=== PATIENT | female | born 1955 | race Caucasian/White ===

== ENCOUNTER 2018-03-13 10:52 | Inpatient (IN) | payer OTHER ==
[~2018-03-13] VITALS: Ht 162.6 cm; Wt 60.8 kg
[2018-03-13 10:57] VITALS: BP 156/78
[2018-03-13] MEDS ORDERED: AMLODIPINE BESY10 MG PO (11:02)
[2018-03-13] MEDS ORDERED: HYDROCHLOROTHIA25 M2 PO (11:02)
[2018-03-13] MEDS ORDERED: LISINOPRIL20 MG PO (11:02)
[2018-03-13 11:12] LABS: ABSOLUTE BASOPHILS 0.1 thou/uL (0.0-0.2); ABSOLUTE EOSINOPHILS 0.2 thou/uL (0.0-0.7); ABSOLUTE LYMPHOCYTES 1.6 thou/uL (0.8-5.3); ABSOLUTE MONOCYTES 0.4 thou/uL (0.0-1.2); ABSOLUTE NEUTROPHILS 7.8 thou/uL (1.6-8.1); BASOPHILS 0.9 %; EOSINOPHILS 1.5 %; HEMATOCRIT 34.8 % (37.0-47.0); HEMOGLOBIN 12.2 gm/dL (12.0-15.0); MCH 30.3 pg (26.0-34.0); MCHC 34.9 g/dL (28.0-37.0); MCV 86.8 fL (80.0-100.0); MONOCYTES 4.2 %; MPV 5.8 fl. (7.2-11.1); NUCLEATED RBCS 0 /100WBC; PLATELET COUNT* 593 thou/uL (150-400); POLYS 77.4 %; RBC 4.01 mil/uL (4.20-5.00); RDW-CV 12.8 % (10.5-14.5); WBC 10.1 thou/uL (4.0-11.0)
[2018-03-13 11:20] LABS: APTT 38.6 Seconds (25.0-31.3); PROTIME 9.5 Seconds (9.20-11.50)
[2018-03-13 11:31] LABS: ALBUMIN 3.3 g/dL (3.4-5.0); ALKALINE PHOSPHATASE 103 U/L (46-116); ANION GAP 7 mmol/L (7-16); CALCIUM 8.9 mg/dL (8.5-10.1); CHLORIDE 79 mmol/L (98-107); CO2 31 mmol/L (21-32); CREATININE 0.6 mg/dL (0.6-1.3); GLUCOSE 109 mg/dL (70-99); NT-PRO BRAIN NAT PEPTIDE 153 pg/mL (<300); POTASSIUM 3.2 mmol/L (3.5-5.1); SGOT 21 U/L (15-37); SGPT 23 U/L (30-65); TOTAL BILIRUBIN 0.5 mg/dL (<0.1-1.0); TOTAL PROTEIN 7.4 g/dL (6.4-8.2); TROPONIN-I LEVEL <0.06 ng/mL (<0.06)
[2018-03-13 11:37] LABS: SODIUM 117 mmol/L (136-145)
[2018-03-13 11:40] LABS: BUN 7 mg/dL (7-18)
[2018-03-13 12:52] LABS: URINE CLARITY CLEAR; URINE COLOR YELLOW; URINE SPECIFIC GRAVITY <= 1.005 (1.005-1.030)
[2018-03-13 12:53] LABS: URINE BILIRUBIN NEGATIVE (Negative); URINE BLOOD NEGATIVE (Negative); URINE GLUCOSE-RANDOM NEGATIVE (Negative); URINE KETONES TRACE (Negative); URINE LEUKOCYTES-REFLEX NEGATIVE (Negative); URINE NITRITE-REFLEX NEGATIVE (Negative); URINE PROTEIN TRACE (Negative)
[2018-03-13 14:18] VITALS: BP 159/75
[2018-03-13 14:27] VITALS: BP 149/77
[2018-03-13 20:05] VITALS: BP 133/72
[2018-03-14] VITALS (7 sets, daily range): BP systolic 102–153; BP diastolic 63–77
[2018-03-14 04:52] LABS: HEMATOCRIT 31.4 % (37.0-47.0); HEMOGLOBIN 10.8 gm/dL (12.0-15.0); MCH 30.5 pg (26.0-34.0); MCHC 34.6 g/dL (28.0-37.0); MCV 88.3 fL (80.0-100.0); MPV 6.1 fl. (7.2-11.1); RBC 3.55 mil/uL (4.20-5.00); RDW-CV 13.3 % (10.5-14.5); WBC 9.4 thou/uL (4.0-11.0)
[2018-03-14 05:19] LABS: CALCIUM 8.2 mg/dL (8.5-10.1); CREATININE 0.5 mg/dL (0.6-1.3); MAGNESIUM 1.6 mg/dL (1.8-2.4)
[2018-03-14 05:20] LABS: POTASSIUM 4.7 mmol/L (3.5-5.1)
[2018-03-14 09:41] LABS: PHOSPHORUS* 2.9 mg/dL (2.5-4.9); URIC ACID* 1.5 mg/dL (2.6-7.2)
--- NOTE | 2018-03-14 12:30 | EKG ---
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 MCGUIRE : 1955 Requested By: Floyd Madera Order Number: [id number] MD: Victoriano Quintana Measurements Intervals [place] Rate: 82 P: 78 AK: 175 QRS: -10 QRSD: 84 T: 66 QT: 346 QTc: 404 Interpretive Statements Sinus rhythm Probable left atrial enlargement Inferior infarct, old No previous ECG available for comparison Electronically Signed On 03-14-2018 12:30:25 CDT by Victoriano Quintana [email or web address] <ELECTRONICALLY SIGNED> By: Victoriano Quintana MD, [facility] 03/14/18 1230 1059 1059 Victoriano Quintana MD, [facility] /EPI
[2018-03-15] VITALS (13 sets, daily range): BP systolic 116–180; BP diastolic 60–79
[2018-03-15 05:02] LABS: ALBUMIN 2.8 g/dL (3.4-5.0); CALCIUM 8.7 mg/dL (8.5-10.1); CREATININE 0.5 mg/dL (0.6-1.3); MAGNESIUM 1.7 mg/dL (1.8-2.4); TOTAL BILIRUBIN 0.5 mg/dL (<0.1-1.0); TOTAL PROTEIN 6.7 g/dL (6.4-8.2)
[2018-03-15 05:04] LABS: ABSOLUTE BASOPHILS 0.1 thou/uL (0.0-0.2); ABSOLUTE EOSINOPHILS 0.2 thou/uL (0.0-0.7); ABSOLUTE LYMPHOCYTES 1.6 thou/uL (0.8-5.3); ABSOLUTE MONOCYTES 0.5 thou/uL (0.0-1.2); ABSOLUTE NEUTROPHILS 5.9 thou/uL (1.6-8.1); EOSINOPHILS 2.4 %; HEMATOCRIT 31.5 % (37.0-47.0); HEMOGLOBIN 11.2 gm/dL (12.0-15.0); MCH 31.2 pg (26.0-34.0); MCHC 35.6 g/dL (28.0-37.0); MCV 87.6 fL (80.0-100.0); MONOCYTES 6.2 %; MPV 5.9 fl. (7.2-11.1); NUCLEATED RBCS 0 /100WBC; PLATELET COUNT* 542 thou/uL (150-400); POLYS 71.4 %; RDW-CV 12.9 % (10.5-14.5); WBC 8.3 thou/uL (4.0-11.0)
[2018-03-15 05:11] LABS: POTASSIUM 3.6 mmol/L (3.5-5.1)
--- NOTE | 2018-03-15 10:23 | CON ---
[address] [address] CONSULTATION Name: ALMA SIGALA Room: [address] IN .R.#: [id number] Admission: 03/13/18 Attend Phys: Leonides Fowler, Discharge: Date of : 55 Report #: [id number] THIS REPORT FOR: //name// CC: Bailey Fowler DATE OF SERVICE: 03/14/2018 REASON FOR CONSULTATION: Lung mass. SUBJECTIVE: A 62-year-old pleasant female who has been admitted because of neck pain, headache and nausea and vomiting for the last 10 days. She was found to be hyponatremic. Her sodium was 117. Upon admission, she was started on IV fluids. Initial CT scan of the abdomen and pelvis showed multiple liver lesions consistent with metastatic disease 12-15 noted in the liver probably measuring up to 2.5 cm. In addition to that, the patient underwent CT chest, which showed right paratracheal lymph nodes measuring 1.7 with a focal nodular mass demonstrated in the medial aspect of the right upper lobe with a right suprahilar region measuring 2.2 cm. In addition to that, there is a ground glass changes. The patient has been started on IV fluids. She started to feel a bit better. She reported headaches. She had a CT done with a noncontrast, which came back negative. CT neck showed spondylosis extending through the mid lower cervical spine with a disk space narrowing and osteophytic formation. REVIEW OF SYSTEMS: All systems were reviewed and it was negative except the above. PAST MEDICAL HISTORY: Hypertension. MEDICATIONS: Per admission list. PAST SURGICAL HISTORY: , sinus surgery and right ankle surgery. ALLERGIES: No known allergies. FAMILY HISTORY: Noncontributory. SOCIAL HISTORY: She drinks wine 1-2 glasses on a daily basis. She is a former smoker. She quit 10 years ago; however, she smoked one pack for 20 years. PHYSICAL EXAMINATION: VITAL SIGNS: Today, temperature 36.7, pulse 77, respirations 17 and blood pressure is 142/71. GENERAL: The patient was sitting in chair, was not in acute distress. LUNGS: Decreased [place] [address] CONSULTATION Name: ALMA SIGALA Victor Manuel Room: [address]#: [id number] Admission: 03/13/18 Attend Phys: Leonides Fowler, Discharge: Date of : 55 Report #: [id number] HEART: Regular rate and rhythm. S1, S2 within normal limits. ABDOMEN: Soft, nontender, nondistended and bowel sounds positive. EXTREMITIES: No edema, no cyanosis and no clubbing. LABORATORY DATA: Today, WBC 9.4, hemoglobin 10.8 and platelets 508. Sodium today is 121 and creatinine 0.5. Magnesium is 1.5. ALT is 23 and AST is 103. IMAGING: As mentioned above. ASSESSMENT AND PLAN: A 62-year-old female who has been ex-smoker who presented with hyponatremia with nausea and vomiting and was found to have liver metastases and lung nodules. RECOMMENDATIONS: 1. I agree with correcting her sodium. It has been trending very slowly. This could be a paraneoplastic syndrome. 2. I will arrange for a CT-guided biopsy first thing in the morning to establish her diagnosis. 3. We will obtain a brain MRI due to symptoms of headache even with negativity of noncontrast CT scan. We will obtain LDH and uric acid. We will follow the patient closely. <ELECTRONICALLY SIGNED> By: Jaiden Penaloza MD 03/15/18 1023 0838 [id number] Penaloza MD /nt
--- NOTE | 2018-03-15 12:53 | CON ---
[address] [address] CONSULTATION Name: ZAKIYAALMA Victor Manuel Room: [address] IN .R.#: [id number] Admission: 03/13/18 Attend Phys: Leonides Fowler, Discharge: Date of : 55 Report #: [id number] THIS REPORT FOR: //name// CC: Bailey Fowler DATE OF SERVICE: 03/14/2018 CONSULT REQUESTED BY: Dr. Fowler. INDICATION FOR CONSULTATION: Lung mass. HISTORY OF PRESENT ILLNESS: This is a 62-year-old female with past medical history as mentioned below. This does include an extensive history of smoking in the past. The patient, however, has not been diagnosed with cardiac or respiratory disease in the past. She says that for the last several months, she has had pain in her right knee. She attributes this to a meniscal tear. The patient says that otherwise she has been doing well until around 10 or 15 days ago when she started having nausea, has been vomiting about once a day, has had loss of appetite, has had headaches as well as neck pain. There is no significant increase in shortness of breath. She has had only occasional coughing. There is no sputum production. There is no pain towards the front of her chest. She has had some postnasal drip, otherwise had no other upper respiratory complaints. There is no fever. Answers are negative for 12 questions for review of systems except as mentioned above. Upon arrival, workup has shown lung mass as well as ground-glass opacities in her lungs. The patient also has liver masses and some mild mediastinal lymphadenopathy. PAST MEDICAL HISTORY: Hypertension, , ankle fracture. Note, the patient is on hydrochlorothiazide, amongst other medications for blood pressure at home. There is no known history of cardiac or respiratory disease in the past. There is no known history of fungal disease. There is no known history of previous granulomatous lung disease. There is no known history of exposure to fungal infections. SOCIAL HISTORY: Extensive history of smoking more than a pack a day for several decades, discontinued several years ago, not known to me exactly when she discontinued; one to 2 glasses of wine a day. No known history of illegal drug use. ALLERGIES: No known drug allergies. CURRENT MEDICATIONS: List in [employer] [place] [address] CONSULTATION Name: ALMA SIGALA Room: [address] IN [facility]#: [id number] Admission: 03/13/18 Attend Phys: Leonides Fowler, Discharge: Date of : 55 Report #: [id number] HOME MEDICATIONS: List also in [employer] reviewed. Note that amongst other medications, the patient was on hydrochlorothiazide at home. FAMILY HISTORY: There is no known family history of fungal or granulomatous disease. PHYSICAL EXAMINATION: GENERAL: She is alert, awake and oriented, does not appear to be in any distress at this time. VITAL SIGNS: Has a pulse of 71 and a blood pressure of 152/77. She is afebrile with a temperature of 36.8. She is not on supplemental oxygen. She is saturating 96-98%. HEENT: Head is normocephalic and atraumatic. Pupils are equal and reactive. There is no throat erythema. NECK: Does not show raised JVP, asymmetry, mass or lymph nodes. CHEST: Symmetrical expansion on inspection and palpation. On auscultation, chest is clear. HEART: Regular. There is no murmur. ABDOMEN: Soft and nontender. EXTREMITIES: Lower extremities show no edema, no calf tenderness. SKIN: Dry and intact. NEUROLOGICAL: She did move all extremities bilaterally equally and spontaneously. There is no focal deficit identified. LABORATORY DATA: The patient's CT chest is reviewed. It does show bilateral ground-glass opacities consistent with atypical infiltrates. There is also a centrally located noncalcified lung mass and a peripherally located calcified lung mass. There are liver lesions noted on the CT of the abdomen and pelvis as well as chest as well. There are no additional findings on the patient's CT head and neck as far as evidence of metastatic disease or lymphadenopathy is concerned. The patient's lab work including CBC as well as chemistries, coagulation studies are in [facility]. Urinalysis also in [facility] and this is all reviewed. ASSESSMENT AND PLAN: 1. Bilateral ground-glass pulmonary infiltrates with calcified as well as noncalcified lung mass and liver masses. The patient does have bilateral ground-glass infiltrates. At first glance, these appear to be more consistent with an atypical infection than a malignancy. A fungal infection will also be possible. It is noted also that the patient has a centrally located noncalcified lung mass. The location of this mass is such that biopsy of this mass if needed will be a challenge. I do not feel that it could be biopsied by a bronchoscopy and CT-guided lung biopsy will be high risk, potentially it could be approached down the line if needed with a navigational bronchoscopy. A regular bronchoscopy for cultures in the interim will be possible. [address] [address] CONSULTATION Name: ALMA SIGALA Room: [address] IN [facility].#: [id number] Admission: 03/13/18 Attend Phys: Leonides KaitlinBrooklyn Janeth, Discharge: Date of : 55 Report #: [id number] While it will be entirely possible that the patient's lung mass as well as liver lesions and mediastinal lymphadenopathy are secondary to a metastatic disease, the possibility of granulomatous disease including sarcoid as well as a fungal infection, which could also be old also need to be considered and are possibilities. It is possible that the lung infiltrates are a separate process. At this time, I would go ahead and treat her with levofloxacin, which will cover for atypical infections. I will go ahead and do cultures as well as serologies including fungal and atypical infection serologies at this time. We will also do connective tissue markers. Meanwhile, the Oncology Service has planned for a biopsy of the liver lesions and I feel that this is also reasonable and I agree with the same as well. 2. Mild mediastinal lymphadenopathy. See discussion above. 3. Hyponatremia. The patient appears to be well hydrated at this time. I would primarily treat with fluid restriction. I went ahead and ordered the same. The patient also was on hydrochlorothiazide at home, which may have contributed. I recommend not restarting thiazide diuretics. Suggest using other medications for control of blood pressure. 4. Right leg pain, likely secondary to previous knee injury; however, I would like to do venous Dopplers as well. 5. A former smoker. Thanks for this consultation. <ELECTRONICALLY SIGNED> By: Javier Castañeda MD 03/15/18 1253 1149 0101AMD gilbert Titus
[2018-03-15 13:08] LABS: ANTI-DNA SCREEN 8 IU/mL (0-9); ANTI-RNP <0.2 AI (0.0-0.9)
[2018-03-15 16:20] LABS: CALCIUM 8.5 mg/dL (8.5-10.1); CREATININE 0.5 mg/dL (0.6-1.3)
[2018-03-15 20:25] LABS: CALCIUM 8.2 mg/dL (8.5-10.1); CREATININE 0.5 mg/dL (0.6-1.3); POTASSIUM 4.3 mmol/L (3.5-5.1)
[2018-03-16] VITALS: BP 157/62
[2018-03-16 04:00] VITALS: BP 134/71
[2018-03-16 06:13] LABS: ALBUMIN 3.1 g/dL (3.4-5.0); CALCIUM 8.9 mg/dL (8.5-10.1); CREATININE 0.5 mg/dL (0.6-1.3); MAGNESIUM 1.8 mg/dL (1.8-2.4); POTASSIUM 4.3 mmol/L (3.5-5.1); TOTAL BILIRUBIN 0.4 mg/dL (<0.1-1.0); TOTAL PROTEIN 7.4 g/dL (6.4-8.2)
[2018-03-16 07:49] VITALS: BP 153/67
[2018-03-16 09:09] LABS: HEPATITIS B SURFACE AG Negative (Negative)
--- NOTE | 2018-03-16 11:05 | CON ---
[address] [address] CONSULTATION Name: ZAKIYAALMA D Room: [address] IN M.R.#: [id number] Admission: 03/13/18 Attend Phys: Leonides Fowler, Discharge: Date of : 55 Report #: [id number] THIS REPORT FOR: //name// CC: Bailey Dixon Fowler DATE OF SERVICE: 03/15/2018 REQUESTING PHYSICIAN: Leonides Fowler MD REASON FOR CONSULTATION: Hyponatremia. HISTORY OF PRESENT ILLNESS: The patient is a very pleasant 62-year-old female with medical history significant for hypertension, presents to the hospital from the primary care physician who sent her here because of low sodium level. The patient has not been feeling well for the last 10 days. She was very tired, developed some neck pain. She lost 10 pounds over the last week. The blood work was done by primary care doctor and was found that her serum sodium was 117 and she was admitted to the hospital on 03/13. Her serum sodium went up to 121 after he gave her saline, but then dropped to 118 today, and I was consulted. Workup in the hospital revealed presence of multiple liver lesions consistent with metastatic disease. Also had a few small periportal lymph nodes in the abdomen. Her chest CT revealed right paratracheal lymph node measuring 1.7 cm, a focal nodule mass was found in the medial aspect of the right upper lobe and it was concerning for malignancy and some calcified granulomas in the left lung base. MEDICATIONS: Prior to admission include hydrochlorothiazide, lisinopril, amlodipine. SOCIAL HISTORY: She used to smoke, but quit smoking 10 years ago. FAMILY HISTORY: Negative for cancer. REVIEW OF SYSTEMS: Positive for weight loss, weakness, neck pain. PHYSICAL EXAMINATION: GENERAL: Awake, alert, oriented. VITAL SIGNS: Blood pressure 163/79, heart rate 68, afebrile. HEENT: Pupils are round. NECK: Supple. LUNGS: Clear. CARDIOVASCULAR: Regular rate. ABDOMEN: Soft. LOWER EXTREMITIES: [place] [address] CONSULTATION Name: ALMA SIGALA Room: [address] IN [facility]#: [id number] Admission: 03/13/18 Attend Phys: Leonides Fowler, Discharge: Date of : 55 Report #: [id number] ASSESSMENT: 1. Hyponatremia, most likely it is SIADH, likely due to malignancy. 2. Lung lesions and liver lesions. Workup is in progress, but again most likely that is malignancy. PLAN: 1. We will restrict her fluids to 1200 mL a day. 2. We will give her 300 mL of 3% saline slowly. 3. Await result of the biopsy of her liver lesion. I discussed this case with Dr. Castañeda. Thank you very much for asking my opinion on hyponatremia on the patient. <ELECTRONICALLY SIGNED> By: Hossein Doss MD 03/16/18 1105 1220 [id number] Doss MD /[facility]
[2018-03-16 12:00] VITALS: BP 147/83
[2018-03-16 15:40] VITALS: BP 183/83
[2018-03-16 18:12] LABS: CALCIUM 8.2 mg/dL (8.5-10.1); CREATININE 0.6 mg/dL (0.6-1.3); POTASSIUM 3.9 mmol/L (3.5-5.1)
[2018-03-16 19:45] VITALS: BP 117/57
[2018-03-16 23:08] LABS: MYCOPLASMA PNEUMONIA IgG 657 U/mL (0-99); MYCOPLASMA PNEUMONIA IgM <770 U/mL (0-769)
[2018-03-17] VITALS: BP 135/60
[2018-03-17 03:54] VITALS: BP 134/78
[2018-03-17 04:48] LABS: CREATININE 0.5 mg/dL (0.6-1.3); POTASSIUM 3.9 mmol/L (3.5-5.1)
[2018-03-17 08:00] VITALS: BP 165/72
[2018-03-17 11:10] VITALS: BP 154/77
[2018-03-17 15:37] VITALS: BP 142/74
[2018-03-17 19:40] VITALS: BP 168/86
[2018-03-18] VITALS (8 sets, daily range): BP systolic 111–160; BP diastolic 67–89
[2018-03-18] MEDS ORDERED: PROBIOTIC ACID1 EAC3 PO (11:12)
[2018-03-18] MEDS ORDERED: LEVAQUIN 500 M500 M2 PO (11:13)
--- NOTE | 2018-03-18 16:11 | PATH ---
[address] [address] PATHOLOGY RPT PROCEDURE Name: ZAKIYAJUSTYNA Room: [address] IN .R.#: [id number] Admission: 03/13/18 Date of : 55 Discharge: 03/18/18 Report #: [id number] Path Case #: [id number] [facility] Accession Number: [id number] . 01 Material submitted: . LIVER BIOPSY . 01 Clinical history: . 1.5 x 1.1 x 1.5 cm mass . 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 (SEE COMMENT). QTP/03/18/2018 . 02 Comment: Multiple tissue cores show liver parenchyma involved by nests and sheets of malignant, small cells, typical of bronchogenic small cell carcinoma, supported by properly-controlled immunohistochemical stains showing results as follows: . TTF1: Strong positive Keratin AE1/AE3: Strong perinuclear dot-like positive CD5/6: Strong positive . Preliminary findings relayed to Dr. Penaloza at approximately 11:07 on 03/16/2018 and final results to Dr. Penaloza at approximately 09:40 on 03/17/2018. . Reviewed with Dr. Mesha Malone who agrees with the diagnosis. (ANNIE:pit 03/17/2018) . 02 Electronically signed: . Jesse Guidry MD, Pathologist NPI- [id number] . 01 Gross description: . Received in formalin labeled "Justyna Sigala, liver BX," are 6 distinct needle cores of adames soft tissue ranging from 0.1 to 1.2 cm in length and measuring less than 0.1 cm in diameter. The specimen is submitted entirely in cassette A1. (TSD; 03/15/2018) TOB/TOB . 02 Pathologist provided ICD-10: C78.7 [place] [address] PATHOLOGY RPT PROCEDURE Name: JUSTYNA SIGALA Room: [address] IN [facility]#: [id number] Admission: 03/13/18 Date of : 55 Discharge: 03/18/18 Report #: [id number] Path Case #: [id number] . 02 CPT . 730067, [id number], [id number] Performed at: [address], [place], [place] [id number] MD Jose Hoover MD Phone: [phone] Performed at: 02 [facility] [address] [place], [place] [id number] MD Jesse Guidry MD Phone: [phone]
[2018-03-18 23:08] LABS: ADENOVIRUS Negative (Negative); INFLUENZA A Negative (Negative); INFLUENZA B Negative (Negative); METAPNEUMOVIRUS Negative (Negative); PARAINFLUENZA 1 Negative (Negative); PARAINFLUENZA 2 Negative (Negative); PARAINFLUENZA 3 Negative (Negative); RHINOVIRUS Negative (Negative); RSV A Negative (Negative); RSV B Negative (Negative)
== END 2018-03-18 12:30 | disposition home or self-care (01) | DRG 643 ==
LOC: M.ERS 10:52 → M.2W 13:42 → M.TBA-ER 13:42 → M.2W 14:33
PROVIDERS: Family Medicine; Internal Medicine; Internal Medicine Critical Care Medicine; Internal Medicine Nephrology; ADMIT Family Medicine
PROC: B548ZZA Ultrasonography of Superior Vena Cava, Guidance (ICD-10-PCS; principal; 2018-03-15)
PROC: 0FB13ZX Excision of Right Lobe Liver, Percutaneous Approach, Diagnostic (ICD-10-PCS; principal; 2018-03-15)
PROC: B5181ZA Fluoroscopy of Superior Vena Cava using Low Osmolar Contrast, Guidance (ICD-10-PCS; principal; 2018-03-15)
PROC: 02HV33Z Insertion of Infusion Device into Superior Vena Cava, Percutaneous Approach (ICD-10-PCS; principal; 2018-03-15)
DX: E22.2 Syndrome of inappropriate secretion of antidiuretic hormone (principal); J18.9 Pneumonia, unspecified organism; I10 Essential (primary) hypertension; R91.8 Other nonspecific abnormal finding of lung field; R91.1 Solitary pulmonary nodule; R59.1 Generalized enlarged lymph nodes; K76.9 Liver disease, unspecified; E87.6 Hypokalemia; Z87.81 Personal history of (healed) traumatic fracture; Z87.891 Personal history of nicotine dependence; Z79.899 Other long term (current) drug therapy

== ENCOUNTER → 2018-06-09 | Outpatient (CLI) | payer OTHER ==
[~2018-06-09] MED LIST: AMLODIPINE BESY10 MG PO; HYDROCHLOROTHIA25 M2 PO; LEVAQUIN 500 M500 M2 PO; LISINOPRIL20 MG PO; PROBIOTIC ACID1 EAC3 PO
== END ==
LOC: M.MRI 06-02 10:55
DX: C34.81 Malignant neoplasm of overlapping sites of right bronchus and lung (principal); I25.10 Atherosclerotic heart disease of native coronary artery without angina pectoris

== ENCOUNTER → 2018-09-15 | Outpatient (CLI) | payer OTHER | LOC: M.MRI 07:34 | DX: C34.81 Malignant neoplasm of overlapping sites of right bronchus and lung (principal); R90.82 White matter disease, unspecified; J32.9 Chronic sinusitis, unspecified ==

== ENCOUNTER 2018-11-09 12:09 | Inpatient (IN) | payer OTHER ==
[~2018-11-09] VITALS: Ht 162.6 cm; Wt 55.3 kg
[2018-11-09 12:12] VITALS: BP 166/78
[2018-11-09 12:48] LABS: ABSOLUTE BASOPHILS 0.1 thou/uL (0.0-0.2); ABSOLUTE EOSINOPHILS 0.2 thou/uL (0.0-0.7); ABSOLUTE MONOCYTES 0.7 thou/uL (0.0-1.2); ABSOLUTE NEUTROPHILS 4.3 thou/uL (1.6-8.1); BASOPHILS 1.1 %; EOSINOPHILS 3.5 %; HEMATOCRIT 39.4 % (37.0-47.0); LYMPHOCYTES 16.6 %; MCH 30.9 pg (26.0-34.0); MCHC 35.6 g/dL (28.0-37.0); MCV 86.8 fL (80.0-100.0); MONOCYTES 10.6 %; MPV 6.7 fl. (7.2-11.1); NUCLEATED RBCS 0 /100WBC; PLATELET COUNT* 315 thou/uL (150-400); POLYS 68.2 %; RBC 4.53 mil/uL (4.20-5.00); RDW-CV 14.5 % (10.5-14.5); WBC 6.3 thou/uL (4.0-11.0)
[2018-11-09 13:14] LABS: ALBUMIN 3.4 g/dL (3.4-5.0); ALKALINE PHOSPHATASE 377 U/L (46-116); ANION GAP 10 mmol/L (7-16); BUN 12 mg/dL (7-18); CALCIUM 9.4 mg/dL (8.5-10.1); CHLORIDE 90 mmol/L (98-107); CO2 27 mmol/L (21-32); CREATININE 0.6 mg/dL (0.6-1.3); GLUCOSE 121 mg/dL (70-99); POTASSIUM 3.2 mmol/L (3.5-5.1); SGOT 124 U/L (15-37); SGPT 111 U/L (30-65); SODIUM 127 mmol/L (136-145); TOTAL BILIRUBIN 0.6 mg/dL (<0.1-1.0); TOTAL PROTEIN 7.4 g/dL (6.4-8.2); TROPONIN-I LEVEL <0.06 ng/mL (<0.06)
[2018-11-09 14:07] LABS: INFLUENZA A ANTIGEN None Detected (None Detect); INFLUENZA B ANTIGEN None Detected (None Detect)
[2018-11-09 15:18] LABS: URINE BLOOD NEGATIVE (Negative); URINE CLARITY CLEAR; URINE COLOR YELLOW; URINE GLUCOSE-RANDOM NEGATIVE (Negative); URINE KETONES TRACE (Negative); URINE LEUKOCYTES-REFLEX TRACE (Negative); URINE NITRITE-REFLEX NEGATIVE (Negative); URINE PROTEIN TRACE (Negative); URINE SPECIFIC GRAVITY >= 1.030 (1.005-1.030)
[2018-11-09 15:29] LABS: ICTOTEST (BILI CONFIRMATORY) Negative (Negative); URINE BILIRUBIN 1+ (Negative)
[2018-11-09 15:31] LABS: BACTERIA-REFLEX 1-9 Few /HPF (None Seen); CASTS None Seen /LPF (None Seen); SQUAMOUS 0-3 Few /LPF (0-3); URINE RBC 0-2 Rare /HPF (0-2); URINE WBC-REFLEX 0-5 Rare /HPF (0-5)
[2018-11-09 19:48] VITALS: BP 138/66
[2018-11-09 20:00] VITALS: BP 160/75
[2018-11-10] VITALS: BP 167/81
[2018-11-10] MEDS ORDERED: MIRALAX17 G1 PO (03:08)
[2018-11-10] MEDS ORDERED: TYLENOL PM EX-1 EACH PO ×2 (03:10→03:12)
[2018-11-10 04:00] VITALS: BP 165/80
--- NOTE | 2018-11-10 04:22 | NUR ---
RECEIVED PT FROM ER AT APPROX 1950 ACCOMPANIED BY RN. PT IS AWAKE AND ORIENTED X4. GERIATRIC ASSISTANT TRACING SR. VSS. O2 SAT IS 95% ON 2L/NC. ADMISSION ASSESSMENT DONE AND CHARTED. WITH C/O RUQ ABDOMINAL PAIN, PT SAYS PAIN IS EXACERBATED BY DEEP BREATHING. PAIN PARTIALLY RELEIVED BY FENTANYL GIVEN PER MAR. PT DENIES NAUSEA. ADVISED ON THE USE OF CALL LIGHT AND ORIENTED ON ROOM SET-UP. HOURLY ROUNDING DONE FOR PT SAFETY.
[2018-11-10 07:24] LABS: CALCIUM 7.5 mg/dL (8.5-10.1); CREATININE 0.4 mg/dL (0.6-1.3); POTASSIUM 3.8 mmol/L (3.5-5.1)
[2018-11-10 07:30] VITALS: BP 161/86
--- NOTE | 2018-11-10 09:44 | NUR ---
Pt is A&O. Resides at home alone. Active and independent. No DME. No hx of HH or SNF. Goal is home at nh, Pt is hopeful to dc today. Dtr in room and can transport. Following.
[2018-11-10 13:48] VITALS: BP 176/76
--- NOTE | 2018-11-10 13:51 | 2DMMODE ---
[place] [address] 2 D/M-MODE ECHOCARDIOGRAM Name: ALMA SIGALA Room: [address] IN [facility]#: [id number] Admission: 11/09/18 Attend Phys: Cristian Lentz Discharge: Date of : 55 Date of Service: 11/10/18 1351 Report #: [id number] THIS REPORT FOR: //name// APPROVED REPORT Study performed: 11/10/2018 11:18:04 EXAM: Comprehensive 2D, Doppler, and color-flow Echocardiogram Patient Location: In-Patient Room #: [facility] Status: routine BSA: 1.59 HR: 75 bpm BP: 161/86 mmHg Rhythm: NSR Other Information Study Quality: Good Indications Dyspnea Tachycardia 2D Dimensions IVSd: 10.74 (7-11mm) LVOT Diam: 19.16 (18-24mm) LVDd: 36.35 mm PWd: 7.72 (7-11mm) Ascending Ao: 28.40 (22-36mm) LVDs: 21.83 (25-40mm) Aortic Root: 29.76 mm Volumes Left Atrial Volume (Systole) LA ESV Index: 31.00 mL/m2 Aortic Valve AoV Peak Alex.: 1.52 m/s AO Peak Gr.: 9.19 mmHg LVOT Max P.87 mmHg AO Mean Gr.: 5.08 mmHg LVOT Mean P.62 mmHg LVOT Max V: 1.40 m/s AO V2 VTI: 33.17 cm LVOT Mean V: 0.87 m/s JORDAN (VTI): 2.61 cm2 LVOT V1 VTI: 30.01 cm Mitral Valve E/A Ratio: 0.81 MV Decel. Time: 223.77 [place] [address] 2 D/M-MODE ECHOCARDIOGRAM Name: ALMA SIGALA Room: [address]#: [id number] Admission: 11/09/18 Attend Phys: Cristian Lentz Discharge: Date of : 55 Date of Service: 11/10/18 1351 Report #: [id number] MV E Max Alex.: 0.80 m/s MV PHT: 64.89 ms MVA (PHT): 3.39 cm2 TDI E/Lateral E': 7.27 E/Medial E': 6.67 Medial E' Alex.: 0.12 m/s Lateral E' Alex.: 0.11 m/s Pulmonary Valve PV Peak Alex.: 0.86 m/s PV Peak Gr.: 2.93 mmHg Left Ventricle The left ventricle is normal size. There is normal LV segmental wall motion. There is normal left ventricular wall thickness. Left ventricular systolic function is normal. The left ventricular ejection fraction is within the normal range. LVEF is 60-65%. Grade I - abnormal relaxation pattern. Right Ventricle The right ventricle is normal size. The right ventricular systolic function is normal. Atria The left atrium size is normal. The right atrium size is normal. Aortic Valve Mild aortic valve sclerosis. No aortic regurgitation is present. There is no aortic valvular stenosis. Mitral Valve The mitral valve is normal in structure. Trace mitral regurgitation. No evidence of mitral valve stenosis. Tricuspid Valve The tricuspid valve is normal in structure. Unable to assess PA pressure. Trace tricuspid regurgitation. Pulmonic Valve The pulmonary valve is normal in structure. There is no pulmonic valvular regurgitation. Great Vessels The aortic root is normal in size. IVC is normal in size and collapses >50% [place] [address] 2 D/M-MODE ECHOCARDIOGRAM Name: ALMA SIGALA Room: [address]#: [id number] Admission: 11/09/18 Attend Phys: Cristian Lentz Discharge: Date of : 55 Date of Service: 11/10/18 1351 Report #: [id number] Pericardium There is no pericardial effusion. <Conclusion> The left ventricle is normal size. There is normal left ventricular wall thickness. Left ventricular systolic function is normal. The left ventricular ejection fraction is within the normal range. LVEF is 60-65%. Grade I - abnormal relaxation pattern. The right ventricle is normal size. The left atrium size is normal. Mild aortic valve sclerosis. No aortic regurgitation is present. There is no aortic valvular stenosis. The mitral valve is normal in structure. Trace mitral regurgitation. The tricuspid valve is normal in structure. IVC is normal in size and collapses >50% with inspiration. There is no pericardial effusion. There is normal LV segmental wall motion. <ELECTRONICALLY SIGNED> By: Gerard Lopez MD, FACC 11/10/18 1351 1351 1351 Gerard Lopez MD, FACC /INF
--- NOTE | 2018-11-10 14:31 | EKG ---
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
[2018-11-10] MEDS ORDERED: OXYCODONE HCL 55 MG PO (15:33)
[2018-11-10 15:36] VITALS: BP 176/76
== END 2018-11-10 16:30 | disposition home or self-care (01) | DRG 181 ==
LOC: M.ERS 12:09 → M.2W 16:14 → M.TBA-ER 16:14 → M.2W 20:37
PROVIDERS: Physician Assistant; ADMIT Internal Medicine
DX: C34.90 Malignant neoplasm of unspecified part of unspecified bronchus or lung (principal); C78.7 Secondary malignant neoplasm of liver and intrahepatic bile duct; E87.1 Hypo-osmolality and hyponatremia; R06.03 Acute respiratory distress; E87.6 Hypokalemia; R00.0 Tachycardia, unspecified; I10 Essential (primary) hypertension; Z98.891 History of uterine scar from previous surgery; Z85.118 Personal history of other malignant neoplasm of bronchus and lung; Z87.891 Personal history of nicotine dependence

== ENCOUNTER → 2018-12-24 | Outpatient (CLI) | payer OTHER ==
[~2018-12-24] MED LIST changes: +MIRALAX17 G1 PO; +OXYCODONE HCL 55 MG PO; +TYLENOL PM EX-1 EACH PO
== END ==
LOC: M.MRI 10:51
DX: C34.81 Malignant neoplasm of overlapping sites of right bronchus and lung (principal)

== ENCOUNTER → 2019-02-02 | Outpatient (CLI) | payer OTHER | LOC: M.CT 09:33 | DX: C34.81 Malignant neoplasm of overlapping sites of right bronchus and lung (principal); I70.0 Atherosclerosis of aorta; J84.10 Pulmonary fibrosis, unspecified; K57.30 Diverticulosis of large intestine without perforation or abscess without bleeding; R59.9 Enlarged lymph nodes, unspecified; N83.202 Unspecified ovarian cyst, left side ==

== ENCOUNTER → 2019-04-22 | Outpatient (CLI) | payer OTHER ==
[~2019-04-22] MED LIST changes: +FLAGYL500 M1 PO; +FOLIC ACID1 MG PO; +LEVAQUIN 500 M500 M3 PO; +TRAMADOL 50 MG50 MG PO
== END ==
LOC: M.CT 09:54
DX: C34.81 Malignant neoplasm of overlapping sites of right bronchus and lung (principal); C78.7 Secondary malignant neoplasm of liver and intrahepatic bile duct; J84.10 Pulmonary fibrosis, unspecified; J43.9 Emphysema, unspecified; K76.89 Other specified diseases of liver; R16.0 Hepatomegaly, not elsewhere classified; N83.202 Unspecified ovarian cyst, left side

== ENCOUNTER 2019-05-11 16:06 | Inpatient (IN) | payer OTHER ==
[~2019-05-11] VITALS: Ht 162.6 cm; Wt 4.1 kg
[~2019-05-11 16:06] MED LIST changes: -FLAGYL500 M1 PO; -FOLIC ACID1 MG PO; -LEVAQUIN 500 M500 M3 PO; -TRAMADOL 50 MG50 MG PO
[2019-05-11 16:15] VITALS: BP 168/92
[2019-05-11] MEDS ORDERED: TRAMADOL 50 MG50 MG PO (16:20)
[2019-05-11 16:32] LABS: ABSOLUTE BASOPHILS 0.1 thou/uL (0.0-0.2); ABSOLUTE NEUTROPHILS 6.9 thou/uL (1.6-8.1); BASOPHILS 0.6 %; EOSINOPHILS 0.1 %; HEMATOCRIT 26.6 % (37.0-47.0); HEMOGLOBIN 9.2 gm/dL (12.0-15.0); LYMPHOCYTES 11.4 %; MCH 34.7 pg (26.0-34.0); MCHC 34.6 g/dL (28.0-37.0); MCV 100.3 fL (80.0-100.0); MONOCYTES 11.3 %; MPV 8.1 fl. (7.2-11.1); NUCLEATED RBCS 0 /100WBC; PLATELET COUNT* 229 thou/uL (150-400); POLYS 76.6 %; RBC 2.66 mil/uL (4.20-5.00); RDW-CV 21.5 % (10.5-14.5)
[2019-05-11 16:40] LABS: CALCIUM 9.9 mg/dL (8.5-10.1); CREATININE 0.6 mg/dL (0.6-1.3)
[2019-05-11 16:41] LABS: APTT 25.7 Seconds (25.0-31.3)
[2019-05-11 16:53] LABS: ALBUMIN 3.7 g/dL (3.4-5.0); MAGNESIUM 1.8 mg/dL (1.8-2.4); TOTAL BILIRUBIN 0.9 mg/dL (<0.1-1.0); TOTAL PROTEIN 7.4 g/dL (6.4-8.2)
[2019-05-11 16:55] LABS: POTASSIUM 2.4 mmol/L (3.5-5.1)
[2019-05-11 16:58] LABS: PLATELET ESTIMATE ADEQUATE
[2019-05-11 16:59] LABS: HYPOCHROMASIA 1+; MICROCYTES 1+
[2019-05-11 17:00] LABS: POLYCHROMASIA Occasional
[2019-05-11 21:12] VITALS: BP 164/80
[2019-05-12] VITALS: BP 142/73
[2019-05-12 03:45] VITALS: BP 150/74
[2019-05-12 06:53] LABS: HEMATOCRIT 23.6 % (37.0-47.0); HEMOGLOBIN 8.1 gm/dL (12.0-15.0); MCH 34.7 pg (26.0-34.0); MCHC 34.5 g/dL (28.0-37.0); MCV 100.6 fL (80.0-100.0); MPV 8.1 fl. (7.2-11.1); RBC 2.34 mil/uL (4.20-5.00); RDW-CV 21.9 % (10.5-14.5); WBC 8.1 thou/uL (4.0-11.0)
[2019-05-12 07:05] LABS: ALBUMIN 3.3 g/dL (3.4-5.0); CREATININE 0.5 mg/dL (0.6-1.3); MAGNESIUM 1.6 mg/dL (1.8-2.4); TOTAL BILIRUBIN 0.8 mg/dL (<0.1-1.0); TOTAL PROTEIN 6.9 g/dL (6.4-8.2)
[2019-05-12 07:08] LABS: POTASSIUM 2.9 mmol/L (3.5-5.1)
[2019-05-12 08:00] VITALS: BP 160/84
--- NOTE | 2019-05-12 10:02 | EKG ---
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1955 Requested By: Floyd Madera Order Number: [id number] MD: Nelson Nam Measurements Intervals [place] Rate: 97 P: 81 CO: 144 QRS: 20 QRSD: 85 T: 57 QT: 381 QTc: 484 Interpretive Statements Sinus rhythm Probable left atrial enlargement Left ventricular hypertrophy Probable inferior infarct, old Baseline wander in lead(s) I,III,aVL Compared to ECG 11/09/2018 13:07:47 no complaints Electronically Signed On 05-12-2019 10:02:16 CDT by Nelson Nam [email or web address] <ELECTRONICALLY SIGNED> By: Nelson Nam MD, FACC 05/12/19 1002 1623 1623 Nelson Nam MD, [facility] /EPI
--- NOTE | 2019-05-12 10:39 | NUR ---
Pt is A&O. Resides at home alone. Independent. Pt is undergoing chemotherapy. Pt has a cane that she uses when out in the community. Pt current with [facility], nurse comes weekly and SW comes every 3 weeks. Supportive family and friends that assist as needed. No o2. No hx of HH or SNF. Goal is home at dc, following for dc needs.
--- NOTE | 2019-05-12 17:00 | NUR ---
VSS, SA ON TELE, PT UP AD DENIS, A&OX4, PT HAS ELECTROLYTE IMBALANCE, REPLACEMENT PROTOCOL ACTIVE, HOURLY ROUNDING PERFORMED, POSSESSIONS AND CALL LIGHT WITHIN REACH. PT RESTING COMFORTABLY IN ROOM
[2019-05-12 17:33] LABS: CALCIUM 9.3 mg/dL (8.5-10.1); CREATININE 0.5 mg/dL (0.6-1.3)
[2019-05-12 20:00] VITALS: BP 138/87
[2019-05-13] VITALS (7 sets, daily range): BP systolic 137–158; BP diastolic 64–86
--- NOTE | 2019-05-13 05:10 | NUR ---
ASSUMED PATIENT CARE AT 1900. ASSESSMENT COMPLETED CHARTED. VSS. SR/PACS ON MONITOR. PATIENT HAS A PORT IN THE RIGHT CHEST. DRESSING IS CDI. HOURLY ROUNDING IN PLACE FOR PATIENT SAFETY. CLWR.
[2019-05-13 05:45] LABS: MAGNESIUM 2.1 mg/dL (1.8-2.4); POTASSIUM 3.6 mmol/L (3.5-5.1)
--- NOTE | 2019-05-13 14:04 | NUR ---
PT HOPEFUL TO GO HOME, AWAITING FINAL DR CLEARANCE. WANTS TO CONTIN[facility] WITH [facility].
--- NOTE | 2019-05-13 18:04 | CON ---
[address] [address] CONSULTATION Name: ALMA SIGALA Room: [address] IN ..#: [id number] Admission: 05/11/19 Attend Phys: Thea Elaine MD Discharge: Date of : 55 Report #: [id number] THIS REPORT FOR: //name// CC: Thea Metcalf DATE OF SERVICE: 05/12/2019 DIAGNOSIS: Metastatic small cell, high-grade neuroendocrine tumor. HISTORY OF PRESENT ILLNESS: The patient is a 63-year-old female who has been treated with multiple lines of therapy including carboplatin, etoposide plus Tecentriq. The patient had progressive disease after that, treated with immunotherapy with ipilimumab and Opdivo which she progressed, and most recently, she received 6 cycles of topotecan. Most recent CT scan around 2 weeks ago showed stable disease/partial response; however, the patient requested to have a break from treatment. Previously, she had been having severe abdominal distention and her palliative nurse called the clinic due to shortness of breath. The patient was directed to the Emergency Room. The patient has been complaining of severe constipation, abdominal pain and shortness of breath. She has been previously diagnosed with SIADH and has been on water restriction. Upon admission, she had severe electrolyte abnormalities including severe hypokalemia at 2.4 and lactic acid 3.6 with marginally elevated LFTs. The patient has been on electrolytes replacement. I saw the patient today, this afternoon, she is feeling a little bit better; however, she continues to have the fatigue. Ultrasound and CT scan of the abdomen showed enlarged liver with thickening gallbladder wall. She had abnormal bowel wall thickening involving the small bowel and the colon concerning of enterocolitis. The patient was started on intravenous antibiotics empirically. REVIEW OF SYSTEMS: All systems reviewed. It was negative except the above. PAST MEDICAL HISTORY: Metastatic small cell lung cancer status post three lines of therapy. Most recent CT scan showed disease status as stable/partial response. Currently, the patient requested to be off treatment. Hypertension. PAST SURGICAL HISTORY: and ankle fracture surgery. MEDICATIONS: Per admission list. ALLERGIES: No known allergies. SOCIAL HISTORY: She is an ex-smoker, stopped smoking for more than 1 year, 1 pack per day. No alcohol or drug abuse. PHYSICAL EXAMINATION: [place] [address] CONSULTATION Name: ALMA SIGALA Victor Manuel Room: [address]#: [id number] Admission: 05/11/19 Attend Phys: Thea Elaine MD Discharge: Date of : 55 Report #: [id number] VITAL SIGNS: Today, temperature is 36.5, pulse is 88, respirations 16, blood pressure is 160/84 and SpO2 was 99% on room air. GENERAL: The patient looked cachectic and tired. LUNGS: Decreased breathing sounds bilaterally. ABDOMEN: Severe abdominal distention. EXTREMITIES: No edema, no cyanosis, no clubbing. LABORATORY DATA: Today, WBC 8.1, hemoglobin 8.1 and platelets 189. PT is 10.0 and PTT 25.7. Sodium is 134 which is above her baseline, which is around 120-125, potassium 3.0 and improved, initially it was 2.4 and creatinine 0.5. IMAGING: As mentioned above. ASSESSMENT AND PLAN: 1. 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 The patient progressed after two lines of therapy, most recently on topotecan. She was able to achieve after a partial response/stable disease after 7 cycles. At this point, the patient requested to be off treatment. Most recent CT scan did not show any evidence of progression of disease. Plan for [address] scan. 2. In terms of her electrolyte abnormalities, I agree with empiric antibiotics, replacing her potassium. At this point, she does not have any neutropenia. <ELECTRONICALLY SIGNED> By: Jaiden Penaloza MD 05/13/19 1804 [id number] Penaloza MD /nt
--- NOTE | 2019-05-13 18:49 | NUR ---
ASSUMED PT CARE AT 0730. ASSESSMENT COMPLETED CHARTED. ABLE TO MAKE NEEDS KNOWN. UP AD DENIS. C/O BACK PAIN THIS MORNING AND THIS EVENING AND GAVE PRN PAIN MEDICATION. PT WAS UPSET BECAUSE SHE WASNT ALLOWED TO GO HOME TODAY. PT RESTING IN BED AT THIS TIME. WILL CONTINUE TO MONITOR.
[2019-05-14] VITALS: BP 151/88
[2019-05-14 04:00] VITALS: BP 161/88
[2019-05-14 05:44] LABS: HEMATOCRIT 25.3 % (37.0-47.0); HEMOGLOBIN 8.3 gm/dL (12.0-15.0); MCH 33.8 pg (26.0-34.0); MCHC 32.9 g/dL (28.0-37.0); MCV 102.7 fL (80.0-100.0); MPV 8.2 fl. (7.2-11.1); RBC 2.46 mil/uL (4.20-5.00); RDW-CV 22.5 % (10.5-14.5); WBC 11.2 thou/uL (4.0-11.0)
[2019-05-14 05:56] LABS: ALBUMIN 3.5 g/dL (3.4-5.0); CALCIUM 9.3 mg/dL (8.5-10.1); CREATININE 0.6 mg/dL (0.6-1.3); MAGNESIUM 2.2 mg/dL (1.8-2.4); POTASSIUM 3.1 mmol/L (3.5-5.1); TOTAL BILIRUBIN 1.1 mg/dL (<0.1-1.0)
--- NOTE | 2019-05-14 06:20 | NUR ---
ASSUMED PATIENT CARE AT 1900. ASSESSMENT COMPLETED CHARTED. VSS. PATIENT IS ST/PACS ON MONITOR. HOURLY ROUNDING IN PLACE FOR PATIENT SAFETY. CLWR.
[2019-05-14 08:00] VITALS: BP 179/98
--- NOTE | 2019-05-14 10:43 | CON ---
[facility] [address] [place] [address] CONSULTATION Name: ALMA SIGALA Room: [address] IN ..#: [id number] Admission: 05/11/19 Attend Phys: Thea Elaine MD Discharge: Date of : 55 Report #: [id number] THIS REPORT FOR: //name// CC: Thea Metcalf MD DICTATED BY: Alba Stinson [facility] DATE OF SERVICE: 05/12/2019 PRIMARY CARE PHYSICIAN: Dr. Bailey Metcalf. Please note at the time of this dictation, the patient was seen and physically examined by myself. REASON FOR CONSULTATION: Abnormal CT, small bowel wall thickening. HISTORY OF PRESENT ILLNESS: This is a pleasant 63-year-old female who presented to the Emergency Room with increasing complaints of shortness of breath. She states she does have shortness of breath, but it has gradually worsened over the last 2 days, prompting her to come in to be seen. Her chest x-ray on admission did not show any acute process. She also talks about that she has had increased abdominal distention; however, she states she has had abdominal pain ever since she started chemo and has issues with this distention and she has issues ongoing with constipation. She has tried MiraLax 1 scoop b.i.d., which was too much and she had explosive. She has gone down to once a day, which sometimes was too much and she has been back and forth with trying to find a regular regimen. The patient states she is on a fluid restriction as well. The patient did have a colonoscopy back, probably greater than 10 years ago, with consultants in Gastroenterology, that she states was completely normal, with no history of any polyps at that time and she has not ever had another one done since. ALLERGIES: No known drug allergies. MEDICATIONS: From home included MiraLax, tramadol, lisinopril and amlodipine. PAST MEDICAL HISTORY: Hypertension; 02/2018, lung cancer with liver mets and then also noted recently here on CT, she has had some bone mets and adrenal. FAMILY HISTORY: Negative for any GI or female cancers. SOCIAL HISTORY: She does have a glass of wine a couple times a week to help her relax. She did have a significant smoking history, quit 10 years ago and denies [place] [address] CONSULTATION Name: ALMA SIGALA Victor Manuel Room: [address] IN [facility]#: [id number] Admission: 05/11/19 Attend Phys: Thea Elaine MD Discharge: Date of : 55 Report #: [id number] REVIEW OF SYSTEMS: Twelve-point review of systems is essentially negative, except what is mentioned in the HPI. PHYSICAL EXAMINATION: VITAL SIGNS: Temperature 36.9, pulse 88, respirations 16 and blood pressure 160/84. HEART: Regular rate and rhythm. LUNGS: Diminished. ABDOMEN: Hard in the [id number] quadrants and soft in the lower, with generalized tenderness noted to palpation. Difficulty to assess liver size secondary to discomfort and palpation. NEUROLOGIC: The patient is very frail and cachectic looking. LABORATORY DATA: Hemoglobin on admission was 9.2, now it is 8.1; white count is 8.1 and platelets 184. GFR is 125. She did have a low potassium of 2.9 on admission and that is being corrected. PT was 10, INR was 1. Her lactic acid when she came in was 5; she is down to almost 3. LFTs: Total bilirubin 0.8, alkaline phosphatase 294, ALT 49 and AST 148. Ferritin was 1398, iron was [address] shows abdominal wall thickening of the small bowel and into the ascending colon, metastatic lesions noted in the liver and skeletal system as well as a left adrenal lesion is also noted. IMPRESSION: 1. Abnormal CT with small bowel thickening and ascending colon thickening. 2. Constipation, chronic. 3. Bloating. 4. Anemia, chronic. 5. Hypokalemia. 6. Elevated liver function tests secondary to liver mets. 7. Lung cancer with metastatic disease. PLAN: 1. Ultrasound of the abdomen. 2. Senna 1 tablet b.i.d. 3. Dulcolax suppository now. 4. Further recommendations to be made after Dr. Hilton sees the patient later today. Thank you for allowing us to participate in this patient's care. Please do not hesitate to call with any questions in regard to this consult. <ELECTRONICALLY SIGNED> By: Denny Hilton DO 05/14/19 1043 [id number] Hilton DO /nt
[2019-05-14 12:00] VITALS: BP 147/75
[2019-05-14] MEDS ORDERED: LEVAQUIN 500 M500 M3 PO (12:02)
[2019-05-14] MEDS ORDERED: FOLIC ACID1 MG PO (12:02)
[2019-05-14] MEDS ORDERED: FLAGYL500 M1 PO (12:02)
[2019-05-14] MEDS ORDERED: TYLENOL PM EX-1 EACH PO (13:22)
[2019-05-14 13:25] VITALS: BP 144/79
--- NOTE | 2019-05-14 14:04 | NUR ---
ASSUMED PT CARE AT 0800, AOX4, UP AD DENIS, O2 SAT 90'S RA. TRACING SINUS TACH ON TELE. PT COMPLAINS OF PAIN, MEDS GIVEN. PT DOUG CATH INTACT. ON ELECTROLYTE PROTOCOL. PT FOR DISCHARGE. VSS, AM ASSESSMENT CHARTED, HOURLY ROUNDING, CALL LIGHT WITHIN REACH, WILL CONTINUE TO MONITOR.
--- NOTE | 2019-05-14 16:06 | NUR ---
DISCHARGE PLAN DISCUSSED WITH THE PT. MEDICATION PACKET/SCRIPT GIVEN. TELE REMOVE. PT DOUG CATH HEP LOCK GIVEN. ALL BELONGINGS PACKED AND CHECKED. REMINDED TO FOLLOW UP WITH PCP, ONCOLOGY. LEFT THE UNIT [id number] VIA WHEELCHAIR.
== END 2019-05-14 14:30 | disposition home or self-care (01) | DRG 391 ==
LOC: M.ERS 16:06 → M.TBA-ER 17:07 → M.2W 17:07
PROVIDERS: Family Medicine; ADMIT Internal Medicine
DX: K52.9 Noninfective gastroenteritis and colitis, unspecified (principal); J96.01 Acute respiratory failure with hypoxia; J44.1 Chronic obstructive pulmonary disease with (acute) exacerbation; C34.90 Malignant neoplasm of unspecified part of unspecified bronchus or lung; C78.7 Secondary malignant neoplasm of liver and intrahepatic bile duct; C79.51 Secondary malignant neoplasm of bone; C79.70 Secondary malignant neoplasm of unspecified adrenal gland; I10 Essential (primary) hypertension; E87.6 Hypokalemia; D64.9 Anemia, unspecified; K59.09 Other constipation; R79.89 Other specified abnormal findings of blood chemistry; K63.89 Other specified diseases of intestine; Z98.891 History of uterine scar from previous surgery; Z79.899 Other long term (current) drug therapy